=== PATIENT | female | born 1995 ===

== ENCOUNTER 2023-02-10 12:37 | Outpatient (OUT) | payer OTHER, SELFPAY ==
[2023-02-10] MEDS: RHO(D) IMMUNE GLOBULIN 1,500 UNIT SYRINGE 1500 UNIT IM (14:44)
[2023-02-10 14:45] VITALS: BP 122/79; PULSE 113; RESP 18; TEMP 36.7; O2SAT 96
--- NOTE | 2023-02-10 15:01 | PC.NURSE ---
Patient is here for RhoGam Injection, she had her blood work done today. I educated her about possible side effects, she has received this in her previous pregnancies. She tolerated this well and denies any complaints.
== END 2023-02-10 12:38 | disposition home or self-care (01) ==
LOC: LAB 12:37
PROVIDERS: PCP Midwife; Visit Provider Midwife
DX: O26.899 Other specified pregnancy related conditions, unspecified trimester (principal); Z67.91 Unspecified blood type, Rh negative
CPT/HCPCS: 36415; 86850; 86900; 86901; 96372; J2790

== ENCOUNTER 2023-04-27 09:59 | Outpatient (OUT) | payer OTHER, SELFPAY ==
[2023-04-27 13:32] LABS: Basophils Percent Auto 0.5 % (0.2-2.0); Eosinophils Absolute Auto 0.1 10^3/uL (0.0-0.7); Eosinophils Percent Auto 1.4 % (0.9-7.0); Hematocrit 38.6 % (36.0-48.0); Hemoglobin 12.7 g/dL (12.0-16.0); Immature Granulocytes Abs Auto 0.01 10^3/uL (0.00-0.03); Immature Granulocytes Pct Auto 0.2 % (0.0-0.5); Lymphocytes Absolute Auto 2.4 10^3/uL (1.2-3.8); Lymphocytes Percent Auto 36.5 % (20.5-60.0); Mean Corpuscular HGB Conc 32.9 g/dL (29.9-35.2); Mean Corpuscular Hemoglobin 29.7 pg (26.7-34.0); Mean Corpuscular Volume 90.2 fL (81.0-99.0); Mean Platelet Volume 11.9 fL (9.5-13.5); Monocytes Absolute Auto 0.4 10^3/uL (0.3-0.8); Monocytes Percent Auto 5.9 % (1.7-12.0); Neutrophils Absolute Auto 3.6 10^3/uL (1.4-6.5); Neutrophils Percent Auto 55.5 % (43.0-75.0); Platelet Count 235 10^3/uL (150-450); Red Blood Count 4.28 10^6/uL (4.20-5.40); Red Cell Distribution Width 12.2 % (11.0-15.0); White Blood Count 6.4 10^3/uL (4.0-11.0)
== END 2023-04-27 10:00 | disposition home or self-care (01) ==
LOC: PST 10:03
PROVIDERS: PCP Family Medicine; Visit Provider Surgery
DX: Z01.812 Encounter for preprocedural laboratory examination (principal); K42.9 Umbilical hernia without obstruction or gangrene
CPT/HCPCS: 85025

== ENCOUNTER 2023-05-04 07:33 | Day surgery (SDC) | payer OTHER, SELFPAY ==
[2023-04-27 10:33] VITALS: BP 114/83; PULSE 88; RESP 14; TEMP 36.4; O2SAT 96; BMI 29.3
[2023-05-04] VITALS (15 sets, daily range): BP systolic 98–120; BP diastolic 63–87; PULSE 72–110; RESP 12–36; TEMP 36.4; O2SAT 90–100; BMI 29.2
[2023-05-04] MEDS: LACTATED RINGER'S SOLUTION 1,000 ML 50 ML IV (08:02)
[2023-05-04 08:06] LABS: HCG Qualitative NEGATIVE (NEGATIVE)
[2023-05-04] MEDS: CEFAZOLIN SODIUM/DEXTROSE,ISO 2 GM/50 ML PIGGYBACK IV (08:16)
[2023-05-04] MEDS: BUPIVACAINE LIPOSOME/PF 266 MG/13.3 ML VIAL INJ (09:19)
[2023-05-04] MEDS: BUPIVACAINE HCL 0.25% PF 25 MG/10 ML VIAL 20 ML INJ (09:22)
--- NOTE | 2023-05-04 09:53 | PM.GSPRC ---
Date of procedure: 05/04/23 Indications for Procedure: Patient is a 27-year-old female was recently seen in evaluation of a reported supraumbilical hernia. On examination she is noted to have a palpable soft tissue mass just superior to the umbilicus consistent with a hernia. Open repair of the hernia with possible mesh was recommended. The risks benefits options and potential complications of the procedure were discussed in detail with her and she agreed to proceed and consent was signed. Pre-op diagnosis: supraumbilical hernia Post-op diagnosis: same as pre-op Procedure: Patient was brought to the operating room placed in a supine position. Gen. anesthesia was induced and the patient was intubated. IV antibiotics were given preoperatively. A transverse incision is made overlying the palpable soft tissue mass above the umbilicus. This was carried down through subcutaneous tissue with electrocautery. Subsequently a moderate-sized segment of preperitoneal fat was identified consistent with a hernia. This was freed from the surrounding tissue with blunt and sharp dissection. This is carried down to the fascial defect. The herniated contents were subsequently reduced through the defect. The defect itself was approximately 1 cm in diameter. Next a piece of Marlex mesh was cut round approximate 3 cm in diameter. This was placed in the preperitoneal space. The fascia was then closed incorporating the mesh with the stitches with two [id number] sutures of #1 PDS. Hemostasis and secure closure of the hernia was noted. The subcutaneous tissue is reapproximated with interrupted sutures of 3-0 Vicryl. The skin was closed with a running subcuticular suture of 4-0 Vicryl. Sponge and needle instrument counts were correct at the end of the procedure. The patient tolerated the procedure well and was transferred to the recovery area in stable condition. Anesthesia: MARIONA Surgeon: Maximo Bonds Estimated blood loss (mL): 2 Specimens: None Complications: No
== END 2023-05-04 11:02 | disposition home or self-care (01) ==
PROVIDERS: PCP Family Medicine; Visit Provider Surgery
PROC: (CPT 49591; principal; 2023-05-04 08:30)
DX: K42.9 Umbilical hernia without obstruction or gangrene (principal); D64.9 Anemia, unspecified
CPT/HCPCS: 49591; 36415; 64488; 84703; C1781; J2704